=== PATIENT | female | born 1990 | race Caucasian/White ===

== ENCOUNTER → 2020-07-20 | Outpatient (CLI) | payer BC ==
[~2020-07-20] MED LIST: AMOX500 PO; DOC250 PO; RXAMOX500 PO
[2020-07-21 15:45] LABS: Protein, Urine Quantitative 8.5 mg/dL (0.0-11.9)
== END ==
LOC: LAB SHORT 06:00 → LAB 06:00
PROVIDERS: Obstetrics & Gynecology
DX: O10.019 Pre-existing essential hypertension complicating pregnancy, unspecified trimester (principal)
CPT/HCPCS: 81050; 84156

== ENCOUNTER → 2022-02-15 | Outpatient (CLI) | payer BC | END | disposition home or self-care (01) | LOC: LAB 15:31 → LAB SHORT 15:31 | PROVIDERS: Advanced Practice Midwife | DX: Z01.419 Encounter for gynecological examination (general) (routine) without abnormal findings (principal) | CPT/HCPCS: G0123 ==

== ENCOUNTER 2024-05-24 06:50 | Day surgery (SDC) | payer BC ==
[~2024-05-24] VITALS: Ht 160 cm; Wt 113.3 kg
[2024-05-24] MEDS ORDERED: LISINOPRIL2.5 MG PO (07:17)
--- NOTE | 2024-05-24 07:24 | NUR ---
05/24/24 0724 Reanna Sood 0.15ML OF EPI (1MG/ML) ADDED TO 0.5% BUPIVACAINE (150MG/30ML) TO MAKE BUPIVACAINE 0.5% WITH EPI 1:200,000.
[2024-05-24] MEDS ORDERED: propofoL 20 ML IV ONE (07:36)
[2024-05-24] MEDS ORDERED: Sugammadex Sodium 200 MG/2ML SDV (100 MG/ML) ONE (07:36)
[2024-05-24] MEDS ORDERED: FentaNYL Citrate 50 MCG/ML 2 ML Injection ONE (07:36)
[2024-05-24] MEDS ORDERED: Dexamethasone Sod Phos 10 MG/ML 1ML VIAL ONE (07:37)
[2024-05-24] MEDS ORDERED: Ketorolac Tromethamine 30mg Vial ONE (07:37)
[2024-05-24] MEDS ORDERED: Ondansetron HCl 2 MG / ML 2ML Vial ONE (07:37)
[2024-05-24] MEDS ORDERED: Lactated Ringer's 1,000 ML IV ONE (07:43)
--- NOTE | 2024-05-24 07:50 | NUR ---
05/24/24 0750 Phoebe Flores [phone] PT TO BATHROOM TO REMOVE TAMPON
[2024-05-24] MEDS ORDERED: Midazolam HCl 1MG / ML 2ML Vial ONE (07:55)
[2024-05-24] MEDS ORDERED: Rocuronium Bromide 10 MG/ML 5ML Injection IV ONE (08:06)
[2024-05-24] MEDS ORDERED: Bupivacaine 0.5% W/EPI 1:200000 SDV 30ML INJ ONE (08:09)
[2024-05-24] MEDS ORDERED: Labetalol HCL 5 MG/ML 4ML Injection (Single Dose) ONE (08:25)
[2024-05-24] MEDS ORDERED: Phenylephrine HCl 100 MCG/ML-NS 10MLSYR (1MG/10ML) ONE (08:43)
[2024-05-24] MEDS ORDERED: OxyCODONE 5 mg/Acetamin 325 mg TABLET ONE (09:42)
[2024-05-24 09:50] VITALS: BP 100/89
--- NOTE | 2024-05-24 10:16 | NUR ---
05/24/24 Dayan Sotelo PT STS PAIN 12/08, DENIES NAUSEA. PT REMAINED STABLE T/O. PT REQUESTED TO WALK OUT. SBA BY RN TO CAR.
== END 2024-05-24 10:11 | disposition home or self-care (01) ==
LOC: ORSCSDS 06:50
DX: Z30.2 Encounter for sterilization (principal); N80.329 Endometriosis of the posterior cul-de-sac, unspecified depth; I10 Essential (primary) hypertension; K21.9 Gastro-esophageal reflux disease without esophagitis; E66.01 Morbid (severe) obesity due to excess calories; Z68.42 Body mass index [BMI] 45.0-49.9, adult; Z79.899 Other long term (current) drug therapy
CPT/HCPCS: 88302; A9270; J1100; J1885; J2250; J2371; J2405; J2704; J3010